=== PATIENT | female | born 1930 | race Caucasian/White ===

== ENCOUNTER 2018-03-24 22:18 | Inpatient (IN) | payer MEDICARE ==
[~2018-03-24] VITALS: Ht 152.4 cm; Wt 56.7 kg
--- NOTE | 2018-03-24 22:50 | NUR ---
[id number] filed APS report. APS # [id number]
--- NOTE | 2018-03-24 22:57 | NUR ---
FAMILY/PATIENT UNABLE TO RECAL MEDICATION TAKING AT HOME
[2018-03-24 23:03] LABS: BASOPHILS % (AUTO) 0.6 % (0.0-2.0); EOSINOPHILS # (AUTO) 0.1 K/uL (0.0-0.7); EOSINOPHILS % (AUTO) 1.7 % (0.0-7.0); HEMATOCRIT 39.5 % (31.2-41.9); HEMOGLOBIN 13.2 g/dL (10.9-14.3); LYMPHOCYTES # (AUTO) 0.9 K/uL (20.0-40.0); MEAN CORPUSCULAR HEMOGLOBIN 31.4 uug (24.7-32.8); MEAN CORPUSCULAR HGB CONC 33 g/dL (32.3-35.6); MEAN CORPUSCULAR VOLUME 94.1 fL (75.5-95.3); MONOCYTES # (AUTO) 0.6 K/uL (2.0-10.0); MONOCYTES % (AUTO) 8.7 % (0.0-11.0); PLATELET COUNT (AUTO) 179 K/uL (179-408); WHITE BLOOD COUNT (AUTO) 6.6 K/uL (3.8-11.8)
[2018-03-24 23:21] LABS: CARBON DIOXIDE 25 mmol/L (21-32); CHLORIDE 109 mmol/L (98-107); CREATININE 0.5 mg/dL (0.6-1.3); GLUCOSE 100 mg/dL (74-106); POTASSIUM 3.5 mmol/L (3.5-5.1); UREA NITROGEN, BLOOD 15 mg/dL (7-18)
[2018-03-24 23:28] LABS: ALANINE AMINOTRANSFERASE 20 U/L (14-59); ALKALINE PHOSPHATASE 58 U/L (50-136); ASPARTATE AMINOTRANSFERASE 24 U/L (15-37); BILIRUBIN,DIRECT 0.2 mg/dL (0.0-0.2); BILIRUBIN,TOTAL 0.9 mg/dL (0.2-1.0)
[2018-03-25] MEDS ORDERED: MORPHINE SULFATE 4 MG/1 ML DISP.SYRIN IM ONE (00:30)
[2018-03-25] MEDS ORDERED: TDAP DIPH,PERTUSS,TET VAC/PF 0.5 ML DISP.SYRIN IM ONE ×2 (00:30→00:33)
[2018-03-25] MEDS ORDERED: MORPHINE SULFATE 4 MG/1 ML DISP.SYRIN ONE (00:33)
[2018-03-25] MEDS ORDERED: ONDANSETRON 4 MG/2 ML VIAL IV PRN (00:45)
[2018-03-25] MEDS ORDERED: MAGNESIUM HYDROXIDE 30 ML LIQUID UDC PO PRN (00:45)
[2018-03-25] MEDS ORDERED: HYDROCODONE/APAP 10-325 MG TABLET PO PRN (00:45)
[2018-03-25] MEDS ORDERED: MORPHINE SULFATE 4 MG/1 ML DISP.SYRIN IV ONE (01:00)
--- NOTE | 2018-03-25 01:35 | NUR ---
Pt. admitted to Med/Surg , under care of Gonzalez Goldman. Diagnosis: Clavicular Fracture. Belongs List completed Report given to Evin TSAI
[2018-03-25] MEDS ORDERED: ENOXAPARIN SODIUM 30 MG/0.3 ML DISP.SYRIN SQ SCH (02:00)
--- NOTE | 2018-03-25 02:00 | NUR ---
ADMITTED IN MED SURG FLOOR UNDER THE CARE DARIANA ELY NP, BELONGING LIST DONE.
[2018-03-25 02:19] VITALS: BP 125/59
[2018-03-25] MEDS: ACETAMINOPHEN 325 MG TABLET PO PRN ×2 (03:41→16:18)
[2018-03-25 05:01] VITALS: BP 119/62
[2018-03-25] MEDS: PANTOPRAZOLE SODIUM 40 MG TABLET.DR PO SCH (06:29)
--- NOTE | 2018-03-25 07:00 | NUR ---
pt is laying in bed comfortably, no pain noted/reported. Noted a shoulder sling on right side. Pt is AxOx1, speech is clear. Pt is on RA, no respiratory distress noted. All safety needs are met. Will continue to monitor.
[2018-03-25 11:50] VITALS: BP 114/16
--- NOTE | 2018-03-25 14:02 | NUR ---
called the pt's brother (Zen Bruno)- # ph [phone], the brother is hard of hearing and refused to speak to the nurse. Fadumo Bruno ( of Zen) claims that she lives in [place] and unable to sheepskin pickler home medications, also she claims that there's no furnace puncher. Pt is not able to remember medications that she is taking at home, nor her sister is aware. Unable to find the medications that are taken at home, if any.
[2018-03-25 16:20] VITALS: BP 118/62
--- NOTE | 2018-03-25 16:57 | NUR ---
Pt states that she has chest pain. Nelly Paiz advised. Nelly ordered EKG, welder tech called in, results showed to emanuel goetz. No new orders given.
--- NOTE | 2018-03-25 19:04 | NUR ---
no change noted. No respiratory distress noted. All safety needs are met.
--- NOTE | 2018-03-25 19:20 | NUR ---
RECEIVED PATIENT LYING IN BED. ASLEEP, AROUSE TO TACTILE STIMULI. ALERT TO SELF ONLY. DOSES BACK TO SLEEP RIGHT AFTER. IN NO ACUTE DISTRESS. IV SITE ON LEFT AC INTACT AND PATENT. RIGHT ARM SLING IN PLACE. ICE COMPRESS PROVIDED TO AFFECTED AREA. SAFETY MEASURE INITIATED AND CALL MARIE WITHIN REACH.
[2018-03-25 20:50] VITALS: BP 93/54
[2018-03-25] MEDS: HYDROCODONE/APAP 5-325MG TABLET PO PRN (23:57)
[2018-03-26] MEDS: TEMAZEPAM 7.5 MG CAPSULE PO PRN (02:39)
[2018-03-26 05:01] VITALS: BP 104/62
[2018-03-26] MEDS: PANTOPRAZOLE SODIUM 40 MG TABLET.DR PO SCH (06:09)
--- NOTE | 2018-03-26 06:17 | NUR ---
ALERT TO SELF ONLY. MAINLY CONFUSED AND DISORIENTED. IN NO ACUTE DISTRESS. O2 SAT AT 97% ON RA. IV SITE ON LEFT AC REMAINS INTACT AND PATENT. RIGHT ARM SLING REMAINS IN PLACE. ICE COMPRESS PROVIDED TO AFFECTED AREA. NORCO PRN GIVEN FOR PAIN AND EFFECTIVE. SAFETY MEASURE MAINTAINED AND CALL MARIE WITHIN REACH.
[2018-03-26 06:26] LABS: BASOPHILS # (AUTO) 0.1 K/uL (0.0-8.0); BASOPHILS % (AUTO) 0.9 % (0.0-2.0); EOSINOPHILS # (AUTO) 0.1 K/uL (0.0-0.7); EOSINOPHILS % (AUTO) 1.4 % (0.0-7.0); HEMATOCRIT 39.7 % (31.2-41.9); HEMOGLOBIN 13.2 g/dL (10.9-14.3); LYMPHOCYTES # (AUTO) 0.9 K/uL (20.0-40.0); LYMPHOCYTES % (AUTO) 14.8 % (20.5-51.5); MEAN CORPUSCULAR HEMOGLOBIN 31.6 uug (24.7-32.8); MEAN CORPUSCULAR HGB CONC 33 g/dL (32.3-35.6); MEAN CORPUSCULAR VOLUME 94.7 fL (75.5-95.3); MONOCYTES # (AUTO) 0.5 K/uL (2.0-10.0); MONOCYTES % (AUTO) 7.8 % (0.0-11.0); NEUTROPHILS # (AUTO) 4.7 K/uL (1.8-8.9); NEUTROPHILS % (AUTO) 75.1 % (38.5-71.5); PLATELET COUNT (AUTO) 181 K/uL (179-408); RED BLOOD CELL COUNT(AUTO) 4.19 MIL/uL (3.63-4.92); WHITE BLOOD COUNT (AUTO) 6.3 K/uL (3.8-11.8)
[2018-03-26 06:38] LABS: CARBON DIOXIDE 27 mmol/L (21-32); CHLORIDE 109 mmol/L (98-107); CREATININE 0.5 mg/dL (0.6-1.3); GLUCOSE 89 mg/dL (74-106); MAGNESIUM 1.8 mg/dL (1.8-2.4); PHOSPHOROUS 3.2 mg/dL (2.5-4.9); POTASSIUM 3.3 mmol/L (3.5-5.1); UREA NITROGEN, BLOOD 11 mg/dL (7-18)
[2018-03-26] MEDS: ENOXAPARIN SODIUM 30 MG/0.3 ML DISP.SYRIN SQ SCH (08:17)
[2018-03-26 11:22] VITALS: BP 107/55
[2018-03-26] MEDS ORDERED: POTASSIUM CHLORIDE 20 MEQ TAB.PRT.SR PO ONE (14:00)
[2018-03-26 15:32] VITALS: BP 106/47
[2018-03-26] MEDS: HYDROCODONE/APAP 5-325MG TABLET PO PRN ×2 (17:00→21:48)
--- NOTE | 2018-03-26 19:30 | NUR ---
Received patient in stable condition. No acute distress noted. Patient currently in room 203 who is apparently her sister. Pertinent assessment completed. Noted with right arm sling S/P right Clavicular Fx. Patient is A/Ox1-2 with confusion but able to make her needs known. Patient denies pain & SOB at start of shift. Encouraged patient to use call light. Placed bed alarm on at start of shift. Will continue to monitor through shift.
[2018-03-26 20:00] VITALS: BP 115/60
[2018-03-27] MEDS: TEMAZEPAM 7.5 MG CAPSULE PO PRN (00:15)
[2018-03-27 04:39] VITALS: BP 114/62
[2018-03-27] MEDS: HYDROCODONE/APAP 5-325MG TABLET PO PRN ×2 (05:22→13:52)
[2018-03-27] MEDS: PANTOPRAZOLE SODIUM 40 MG TABLET.DR PO SCH (06:04)
--- NOTE | 2018-03-27 06:22 | NUR ---
Patient stable through out shift. No acute distress noted. Vital signs remained stable. Needed frequent reorientation during shift. Compliant with care & medication. All needs attended to. Medications administered per MD order. Safety measures implemented. Call light in reach. Will endorse to oncoming shift.
[2018-03-27 06:24] LABS: CARBON DIOXIDE 27 mmol/L (21-32); CHLORIDE 106 mmol/L (98-107); CREATININE 0.6 mg/dL (0.6-1.3); GLUCOSE 86 mg/dL (74-106); POTASSIUM 3.8 mmol/L (3.5-5.1); UREA NITROGEN, BLOOD 13 mg/dL (7-18)
[2018-03-27] MEDS: ENOXAPARIN SODIUM 30 MG/0.3 ML DISP.SYRIN SQ SCH (08:01)
[2018-03-27 11:31] VITALS: BP 110/59
[2018-03-27 15:02] VITALS: BP 112/50
--- NOTE | 2018-03-27 15:06 | NUR ---
D/C ORDERS RECEIVED NOTED AND CARRIED OUT,D/C INSTRUCTION AND EDUCATION GIVEN TO THE PT AND RN OVER REHAB PT LEFT THE FACILITY VIA WHEEL CHAIR TO REHAB IN STABLE CONDITION
[2018-03-27] MEDS ORDERED: ACET-2154 PO (16:43)
[2018-03-27] MEDS ORDERED: MAGN400O6 PO (16:48)
[2018-03-27] MEDS ORDERED: HYDR-3980 PO (16:48)
[2018-03-27] MEDS ORDERED: PANT40TA2 PO (16:49)
[2018-03-27] MEDS ORDERED: TEMA7.5C PO (16:50)
== END 2018-03-27 15:10 | DRG 563 ==
LOC: ER 22:22 → MED 03-25 01:00
PROVIDERS: ADMIT Nurse Practitioner Acute Care; ATTEND Nurse Practitioner Acute Care
DX: S42.031A Displaced fracture of lateral end of right clavicle, initial encounter for closed fracture (principal); S01.01XA Laceration without foreign body of scalp, initial encounter; F03.90 Unspecified dementia, unspecified severity, without behavioral disturbance, psychotic disturbance, mood disturbance, and anxiety; W18.30XA Fall on same level, unspecified, initial encounter; S09.90XA Unspecified injury of head, initial encounter; Y93.9 Activity, unspecified; Y92.89 Other specified places as the place of occurrence of the external cause
CPT/HCPCS: 36415; 70450; 70486; 71045; 72125; 72170; 73030; 83735; 84100; 85025; 90715; 93005; 97116; 97165; 97530; A4217; A4663; J1650; J2270

== ENCOUNTER 2018-03-27 16:36 | Inpatient (IN) | payer MEDICARE ==
[~2018-03-27] VITALS: Ht 152.4 cm; Wt 56.7 kg
--- NOTE | 2018-03-27 16:30 | NUR ---
RECEIVED FROM 2NG FLOOR MED SURGICAL UNIT. IN NO AC [place] DISTRESS VSS. AMBULATORY WITH MIN ASSIST. ORIENTED TO UNIT AND SURROUNDINGS. REQUIRE REORIENTATION D/T MENTAL STATUS. SHE GETS ON HER OWN BED ALARM ON. INSTRUCTIONS GIVEN NOT TO BET OOB ALONE PUSH THE CALL LIGHT FOR ASSIST. REQUIRES REORIENTATION
[2018-03-27] MEDS ORDERED: ACET-2154 PO (16:43)
[2018-03-27] MEDS ORDERED: HYDR-3980 PO (16:48)
[2018-03-27] MEDS ORDERED: MAGN400O6 PO (16:48)
[2018-03-27] MEDS ORDERED: PANT40TA2 PO (16:49)
[2018-03-27] MEDS ORDERED: TEMA7.5C PO (16:50)
[2018-03-27 20:06] VITALS: BP 118/66
[2018-03-28] MEDS: HYDROCODONE/APAP 5-325MG TABLET PO PRN ×3 (03:02→21:37)
--- NOTE | 2018-03-28 07:30 | NUR ---
Received pt. in bed aware. A/OX1 with episodes of confusion and forgetfulness. Pt. is a poor historian. Pt. in no acute distress, responsive to verbal and tactile stimuli. No c/o pain or discomfort at this time. Respiration equal and unlabored, clear upon auscultation. Initial skin assessment revealed RT clavicular/shoulder area with bruising and abrasion. Pt. NWB on RUE. Pt. ambulatory per previous shift report. Safety measures in placed, bed alarm turned on. Call light and all frequently used items in placed. Will continue to monitor accordingly
[2018-03-28 08:00] VITALS: BP 121/67
--- NOTE | 2018-03-28 13:14 | NUR ---
INTERDISCIPLINARY TEAM CONFERENCE
--- NOTE | 2018-03-28 13:42 | NUR ---
INTERDISCIPLINARY TEAM CONFERENCE
[2018-03-28 16:00] VITALS: BP 114/67
[2018-03-28 20:00] VITALS: BP 140/81
--- NOTE | 2018-03-28 20:10 | NUR ---
Patient received walking around her room. AAO X1, only by name, very confused and forgetful. Able to make needs known. No sign of acute distress or SOB was noted. On room air with O2 sat 96%. Patient ambulated without assist. Has pain and limitation of motion on her right shoulder. All safety measures maintained. Bed is on low position, brake and alarm are on. Call light and personal belongings within reach. Continue to monitor.
[2018-03-28] MEDS: TEMAZEPAM 7.5 MG CAPSULE PO PRN (21:26)
--- NOTE | 2018-03-29 06:52 | NUR ---
End of shift note, Patient remained stable throughout the shift. No acute distress or SOB was noted. Pain assessed and reassessed after pain medication. All needs attended promptly. Safety measures maintained. Keep her clean and comfortable. Bed in low position, alarm and brake on. Call light and personal belongings within reach. Continue to monitor and will endorse to day shift nurse.
[2018-03-29] MEDS: MAGNESIUM HYDROXIDE 30 ML LIQUID UDC PO PRN (06:59)
[2018-03-29 07:07] VITALS: BP 134/81
[2018-03-29 08:12] VITALS: BP 130/69
--- NOTE | 2018-03-29 08:45 | NUR ---
Received report from previous shift. Received pt. in bed with eyes closed, comfortable. Pt. in no acute distress, no SOB or increase in WOB, equal chest rise noted. All safety measures in place, bed at low position, bed alarms on, 2x upper SR up for bed mobility. No new skin condition noted. Call light and all frequently used items within reach. Will continue to monitor accordingly.
[2018-03-29] MEDS: HYDROCODONE/APAP 5-325MG TABLET PO PRN ×2 (08:48→18:57)
[2018-03-29 16:05] VITALS: BP 122/63
--- NOTE | 2018-03-29 18:53 | NUR ---
End of shift noted: No significant change during this shift. Pt. A/OX1 with confusion and forgetfulness. Pt. remain stable, denies chest pain or SOB. Provided frequent re-orientation as pt. is impulsive, gets out of bed without assistance. Encouraged and educated pt. to use call light for assistance. RUE remain NWB as ordered, sling in placed for comfort. No new skin condition noted. Pt. participated with PT/OT tx and tolerated well. Pt. had BM today, remain continent of B&B. All safety measures and fall precaution in placed, bed alarm on, on low bed, brakes on, 2x upper SR up as enabler and for bed mobility. Will endorse to oncoming shift.
[2018-03-29 20:00] VITALS: BP 104/57
[2018-03-29] MEDS: DOCUSATE SODIUM 100 MG CAPSULE PO SCH (21:05)
--- NOTE | 2018-03-29 21:28 | NUR ---
Received pt resting in bed, AAO x1. Family at bedside. Assisted to the bathroom, steady gait but assistance still needed as pt has sling for her clavicle fracture. Reinforced reorientation, pt very forgetful and tends to get out of bed without calling for help. No acute distress noted. No c/o pain or discomfort, no facial cues noted at this time. Safety measures maintained. Bed alarm on. Call light and personal belongings within reach. Will continue to monitor.
[2018-03-29] MEDS: TEMAZEPAM 7.5 MG CAPSULE PO PRN (22:29)
[2018-03-30 05:00] VITALS: BP 118/70
[2018-03-30 08:00] VITALS: BP 120/71
[2018-03-30] MEDS: DOCUSATE SODIUM 100 MG CAPSULE PO SCH ×2 (08:19→20:24)
[2018-03-30 16:00] VITALS: BP 125/67
--- NOTE | 2018-03-30 17:09 | NUR ---
Daily Nursing Note: No significant change during this shift. Pt. A/OX1 with confusion and forgetfulness. Pt. remain stable, denies chest pain or SOB, no complaints. Provided frequent re-orientation as pt. is impulsive, gets out of bed without assistance. Encouraged and educated pt. to use call light for assistance. RUE remain NWB as ordered, sling in placed for comfort. Pt. participated with PT/OT tx and tolerated well. All safety measures and fall precaution in placed. Will endorse to oncoming shift.
[2018-03-30] MEDS: HYDROCODONE/APAP 5-325MG TABLET PO PRN (18:06)
[2018-03-30 19:30] VITALS: BP 119/68
--- NOTE | 2018-03-30 19:30 | NUR ---
Received pt resting in bed and watching TV. AAO x1, forgetful. No acute distress noted. No c/o pain or discomfort, no facial cues noted. Frequent reorientation provided, pt tends to get out of bed without assistance. Encouraged to use call light, teaching provided. Sling on RUE, NWB. Safety measures maintained. Bed alarm on. Call light and personal belongings within reach. Will continue to monitor.
[2018-03-30] MEDS: TEMAZEPAM 7.5 MG CAPSULE PO PRN (22:25)
[2018-03-31 04:00] VITALS: BP 118/65
[2018-03-31 08:00] VITALS: BP 122/69
--- NOTE | 2018-03-31 08:20 | NUR ---
Patient awake, sitting up on the bed, eating breakfast, not in any form of acute distress. She denies any pain or discomfort. Arm sling on the right arm. Maintained on non-weight bearing on right arm. Attended to her needs. Call light placed within reach.
[2018-03-31] MEDS: DOCUSATE SODIUM 100 MG CAPSULE PO SCH ×2 (08:42→20:52)
[2018-03-31 16:42] VITALS: BP 127/72
[2018-03-31 20:00] VITALS: BP 150/100
--- NOTE | 2018-03-31 20:20 | NUR ---
Patient received sitting in her bed. AAO X1, only by name, very confused and forgetful. Able to make needs known. No sign of acute distress or SOB was noted. On room air with O2 sat 97%. Patient ambulated without assist. Has pain and limitation of motion on her right shoulder. All safety measures maintained. Bed is on low position, brake and alarm are on. Call light and personal belongings within reach. Continue to monitor.
[2018-03-31] MEDS: HYDROCODONE/APAP 5-325MG TABLET PO PRN (20:53)
[2018-03-31] MEDS: TEMAZEPAM 7.5 MG CAPSULE PO PRN (22:14)
[2018-04-01 06:50] VITALS: BP 114/65
[2018-04-01 08:00] VITALS: BP 109/70
[2018-04-01] MEDS: DOCUSATE SODIUM 100 MG CAPSULE PO SCH ×2 (08:18→21:07)
--- NOTE | 2018-04-01 10:07 | NUR ---
Received report from previous shift. Received pt. in bed with eyes closed, comfortable. Pt. in no acute distress, no SOB, equal chest rise noted. All safety measures in place, bed at low position, bed alarms on, bed brakes on, 2x upper SR up for bed mobility. No new skin condition noted. Rt. arm sling in place. Call light and all frequently used items within reach. Will continue to monitor accordingly
[2018-04-01 16:07] VITALS: BP 107/68
[2018-04-01] MEDS: HYDROCODONE/APAP 5-325MG TABLET PO PRN (17:36)
--- NOTE | 2018-04-01 18:55 | NUR ---
End of shift note: No significant change during this shift. Pt. remains stable with no c/o CP or SOB. Encourage pt. fluid intake as tolerated. Participated with PT/OT/ST treatment and tolerated well. A/OX1 with forgetfulness and baseline confusion. Safety measures and fall precaution in place. Bed alarm on, bed brakes on, 2x upper SR up as enabler for bed positioning and mobility. Pt. ambulatory with stanby assist. Frequent visual check and re-orientation performed. Assisted pt. with ADL including shower today. Rt. arm sling in placed. All pt. needs promptly met. Dr. Lui Lynn came and evaluated pt today with no new order. Sister Breana visited pt for emotional support. C/O 5/10 P.S on Rt. Clavicular/shoulder area, PRN [place] administered around 1730 as ordered. Emphasize to pt. use of call light system, pt. needs reinforcement. Call light and all frequently used items a within reach. Will endorse to oncoming shift accordingly.
[2018-04-01 19:53] VITALS: BP 113/61
--- NOTE | 2018-04-01 20:00 | NUR ---
Received pt in bed, appearing to be asleep but easily arousable to verbal stimuli and light touch. No acute distress noted. Verbally responsive and able to make needs known. A/O x 1 to self, reoriented prn and easy to re-direct. Educated pt on the importance of sling for right extremity, pt verbalize understanding but still continues to remove sling. All safety measures and fall precautions maintained. Call light and all personal belongings within reach. Encouraged use of call light when in need of assistance. Will continue to monitor.
[2018-04-01] MEDS: TEMAZEPAM 7.5 MG CAPSULE PO PRN (21:07)
[2018-04-02 05:59] VITALS: BP 109/68
[2018-04-02 08:00] VITALS: BP 107/66
[2018-04-02] MEDS: DOCUSATE SODIUM 100 MG CAPSULE PO SCH ×2 (08:29→20:29)
--- NOTE | 2018-04-02 09:54 | NUR ---
Received report from previous shift. Received pt. in bed with eyes closed, comfortable with no acute distress noted. All safety measures and fall precaution in placed. Bed alarm on, bed brakes on, bed in lowest position, 2x upper SR up as enabler for bed positioning and mobility. All due AM med administered and tolerated well. Pt. tolerated breakfast well, consumed 90%. 1X void. Pt. continent of bladder. Pt. sling on RUE in place. No new skin condition noted. Ambulatory with stanby assist. Frequent visual check and re-orientation provided. Call light and all frequently used items in placed. Will continue to monitor accordingly.
[2018-04-02 17:08] VITALS: BP 116/69
--- NOTE | 2018-04-02 19:24 | NUR ---
End of shift note: No significant change during this shift. No c/o CP or SOB. Encourage pt. fluid intake as tolerated. A/OX1 with forgetfulness and baseline confusion. Safety measures and fall precaution in place. Frequent visual check and re-orientation performed. Rt. arm sling in placed. All pt. needs promptly met. Emphasize to pt. use of call light system, pt. needs reinforcement. Call light and all frequently items in reach. Will endorse to oncoming shift accordingly.
[2018-04-02 19:45] VITALS: BP 115/65
[2018-04-02] MEDS: HYDROCODONE/APAP 5-325MG TABLET PO PRN (20:32)
[2018-04-02] MEDS: TEMAZEPAM 7.5 MG CAPSULE PO PRN (21:23)
--- NOTE | 2018-04-03 05:15 | NUR ---
confused and disoriented. patient redirected. able to follow commands. ambulates with standby assist. tolerated po meds well. voiding well. will monitor patient. needs attended. quiet night. slept well.
[2018-04-03 06:06] VITALS: BP 132/76
[2018-04-03] MEDS: DOCUSATE SODIUM 100 MG CAPSULE PO SCH ×2 (09:29→20:26)
--- NOTE | 2018-04-03 10:39 | NUR ---
Received patient sleeping in bed in stable condition. Continue on therapy for unsteady gait. Patient continue to walk without informing the staff. Continue redirecting and assisting in walking. will continue monitor
[2018-04-03] MEDS: HYDROCODONE/APAP 5-325MG TABLET PO PRN (11:28)
[2018-04-03 18:00] VITALS: BP 125/65
[2018-04-03 20:11] VITALS: BP 125/71
--- NOTE | 2018-04-03 20:15 | NUR ---
Patient received sitting in her bed. AAO X1, only by name, very confused and forgetful. Able to make needs known. No sign of acute distress or SOB was noted. On room air with O2 sat 99%. Patient ambulated without assist. Has a tolerable pain and a little limitation of motion on her right shoulder. All safety measures maintained. Bed is on low position, brake and alarm are on. Call light and personal belongings within reach. Continue to monitor.
[2018-04-03] MEDS: TEMAZEPAM 7.5 MG CAPSULE PO PRN (23:57)
--- NOTE | 2018-04-04 05:56 | NUR ---
End of shift note, Patient remained stable throughout the shift. No acute distress or SOB was noted. No complain of pain. Medication given as ordered. All needs attended promptly. Assisted her to the bathroom every time patient needed. Safety measures maintained. Keep her clean and comfortable. Bed in low position, alarm and brake on. Call light and personal belongings within reach. Continue to monitor and will endorse to day shift nurse.
[2018-04-04 06:54] VITALS: BP 132/63
[2018-04-04 08:00] VITALS: BP 122/57
--- NOTE | 2018-04-04 08:00 | NUR ---
Received patient, awake, alert x1. Able to make needs known. Not in apparent pain. Not in any form of distress. Right arm sling intact and in place. For possible discharge today.
[2018-04-04] MEDS: DOCUSATE SODIUM 100 MG CAPSULE PO SCH (08:57)
[2018-04-04] MEDS: MAGNESIUM HYDROXIDE 30 ML LIQUID UDC PO PRN (08:57)
--- NOTE | 2018-04-04 11:00 | NUR ---
Up with physical therapy. Tolerating well.
--- NOTE | 2018-04-04 13:30 | NUR ---
Patient refused pictures to be taken, was trying to call sister. Patient anxious and would stand up very often. Patient looking forward to go home. Said she is OK and refused pictures to be taken at this time.
--- NOTE | 2018-04-04 14:30 | NUR ---
Discharge order obtained from Dr. Sprague. Stable condition, Vital signs stable. Not in apparent pain. Arm sling reinforced. Instructed Romeo Connolly, friend about prescriptions, prescriptions given to Romeo as well. Instructed to take medications as prescribed. Home health teaching given to Romeo Connolly, instructed to have patient follow up with PCP and ambulate with [facility]. Discharge to home with home health per wheelchair via private transport accompanied by dianne Brewer.
== END 2018-04-04 14:30 | disposition home health service (06) | DRG 561 ==
PROVIDERS: ADMIT Internal Medicine; ATTEND Physical Medicine & Rehabilitation Pain Medicine
DX: S42.031D Displaced fracture of lateral end of right clavicle, subsequent encounter for fracture with routine healing (principal); S09.90XD Unspecified injury of head, subsequent encounter; W18.30XD Fall on same level, unspecified, subsequent encounter; E78.5 Hyperlipidemia, unspecified; F03.90 Unspecified dementia, unspecified severity, without behavioral disturbance, psychotic disturbance, mood disturbance, and anxiety; R26.81 Unsteadiness on feet
CPT/HCPCS: 70030-TC; 92523; 92610; 97110; 97112; 97116; 97530; 97535; A4663